=== PATIENT | male | born 1975 | race African-American/Black ===

== ENCOUNTER 2018-08-15 15:27 | Emergency (ER) | payer OTHER ==
[2018-08-15] MEDS ORDERED: KETOROLAC TROMETHAMINE 60 MG/2 ML SDV IM ONE (16:15)
--- NOTE | 2018-08-15 16:28 | RADIOLOGY REPORT (SQ) ---
EXAM DESCRIPTION: CHEST 2 VIEWS COMPLETED DATE/TIME: 08/15/2018 4:21 pm REASON FOR STUDY: Chest pain COMPARISON: None. EXAM PARAMETERS: NUMBER OF VIEWS: two views TECHNIQUE: Digital Frontal and Lateral radiographic views of the chest acquired. RADIATION DOSE: NA LIMITATIONS: none FINDINGS: LUNGS AND PLEURA: No opacities, masses or pneumothorax. No pleural effusion. MEDIASTINUM AND HILAR STRUCTURES: No masses or contour abnormalities. HEART AND VASCULAR STRUCTURES: Heart normal size. No evidence for failure. BONES: No acute findings. HARDWARE: None in the chest. OTHER: No other significant finding. IMPRESSION: NO ACUTE RADIOGRAPHIC FINDING IN THE CHEST. TECHNICAL DOCUMENTATION: JOB ID: [id number] [employer]- All Rights Reserved Reading location - IP/workstation name: [email or web address]
--- NOTE | 2018-08-15 16:32 | ER Document Report ---
ED General - General Chief Complaint: Chest Wall Pain Stated Complaint: LEFT SIDE PAIN Time Seen by Provider: 08/15/18 16:14 Mode of Arrival: Ambulatory Information source: Patient Notes: Chief complaint: Left lower chest pain History of complain:( obtained from----patient) 43 years old male lifted a heavy object yesterday suddenly felt a sharp pain on the left side of the chest wall, since then pain is persistent increased in intensity by change of position. He feels like some air in the chest. That is his description of pain. No difficulty in breathing no cough. No other constitutional symptoms Onset: As above Duration: As above Severity: Moderate Quality: Sharp Context: As described above Exacerbating factor and relieving factors: Change of position REVIEW OF SYSTEMS: CONSTITUTIONAL : Denies fever, chills, or sweats. Denies recent illness. EENT: Denies eye, ear, throat, or mouth pain or symptoms. Denies nasal or sinus congestion or discharge. Denies throat, tongue, or mouth swelling or difficulty swallowing. CARDIOVASCULAR: Denies chest pain. Denies palpitations or racing or irregular heart beat. Denies ankle edema. RESPIRATORY: Denies cough, cold, or chest congestion. Denies shortness of breath, difficulty breathing, or wheezing. GASTROINTESTINAL: Denies distention. Denies nausea, vomiting, or diarrhea. Denies blood in vomitus, stools, or per rectum. Denies black, tarry stools. Denies constipation. GENITOURINARY: Denies difficulty urinating, painful urination, burning, frequency, blood in urine, or discharge. FEMALE GENITOURINARY: Denies vaginal bleeding, heavy or abnormal periods, irregular periods. Denies vaginal discharge or odor. MUSCULOSKELETAL: Denies back or neck pain or stiffness. Denies joint pain or swelling. SKIN: Denies rash, lesions or sores. HEMATOLOGIC : Denies easy bruising or bleeding. LYMPHATIC: Denies swollen, enlarged glands. NEUROLOGICAL: Denies confusion or altered mental status. Denies passing out or loss of consciousness. Denies dizziness or lightheadedness. Denies headache. Denies weakness or paralysis or loss of use of either side. Denies problems with gait or speech. Denies sensory loss, numbness, or tingling. Denies seizures. PSYCHIATRIC: Denies anxiety or stress. Denies depression, suicidal ideation, or homicidal ideation. ALL OTHER SYSTEMS REVIEWED AND NEGATIVE. PHYSICAL EXAMINATION: GENERAL: Well-appearing, well-nourished and in no acute distress. HEAD: Atraumatic, normocephalic. EYES: Pupils equal round and reactive to light, extraocular movements intact, conjunctiva are normal. ENT: Nares patent, oropharynx clear without exudates. Moist mucous membranes. NECK: Normal range of motion, supple without lymphadenopathy LUNGS: Breath sounds clear to auscultation bilaterally and equal. No wheezes rales or rhonchi. HEART: Regular rate and rhythm without murmurs ABDOMEN: Soft, nontender, nondistended abdomen. No guarding, no rebound. No masses appreciated. Examination of genitals-deferred Musculoskeletal: Normal range of motion, no pitting or edema. No cyanosis. NEUROLOGICAL: Cranial nerves grossly intact. Normal speech, normal gait. Normal sensory, motor exams PSYCH: Normal mood, normal affect. SKIN: Warm, Dry, normal turgor, no rashes or lesions noted. Dictation was performed using [employer] voice recognition software TRAVEL OUTSIDE OF THE [place] IN LAST 30 DAYS: No - HPI Notes: Dictated - Related Data Allergies/Adverse Reactions: No Known Allergies Allergy (Unverified 08/15/18 16:12) Past Medical History - Social History Smoking Status: Never Smoker Frequency of alcohol use: Occasional Drug Abuse: None Family History: Reviewed & Not Pertinent Patient has suicidal ideation: No Patient has homicidal ideation: No Renal/ Medical History: Denies: Hx Peritoneal Dialysis Past Surgical History: Comment Only: Hx Testicular Surgery - varicocele repair - Immunizations Hx Diphtheria, Pertussis, Tetanus Vaccination: Yes Review of Systems - Review of Systems Notes: Dictated Physical Exam - Vital signs Vitals: Temp Pulse Resp BP Pulse Ox 98.2 F 72 16 117/78 100 08/15/18 15:38 08/15/18 15:38 08/15/18 15:38 08/15/18 15:38 08/15/18 15:38 - Notes Notes: Dictated Course - Vital Signs Vital signs: Temp Pulse Resp BP Pulse Ox 98.2 F 72 16 117/78 100 08/15/18 15:38 08/15/18 15:38 08/15/18 15:38 08/15/18 15:38 08/15/18 15:38 Discharge - Discharge Clinical Impression: Chest wall pain Condition: Fair Disposition: HOME, SELF-CARE Instructions: Chest Wall Pain ([facility]) Prescriptions: Baclofen [Baclofen 10 mg Tablet] 10 mg PO TID #60 tab Naproxen 500 mg PO BID #30 tablet
[2018-08-15 18:00] VITALS: BP 115/79
== END 2018-08-15 18:02 | disposition home or self-care (01) ==
LOC: ER 15:27
DX: R07.89 Other chest pain (principal); X50.0XXA Overexertion from strenuous movement or load, initial encounter
CPT/HCPCS: 99283; 96372; 71046; J1885

== ENCOUNTER → 2019-10-07 | Outpatient (CLI) | payer MEDICAID ==
--- NOTE | 2019-10-07 16:28 | RADIOLOGY REPORT (SQ) ---
EXAM DESCRIPTION: KNEE LEFT 3 VIEWS; KNEE RIGHT 3 VIEWS COMPLETED DATE/TIME: 10/07/2019 4:18 pm REASON FOR STUDY: CHRONIC PAIN OF RT/LEFT KNEE M25.561 PAIN IN RIGHT KNEE M25.562 PAIN IN LEFT KNE E COMPARISON: None. NUMBER OF VIEWS: Three views. TECHNIQUE: AP, lateral, and sunrise patella radiographic images acquired of the right and left knees . LIMITATIONS: None. FINDINGS: MINERALIZATION: Normal. BONES: No acute fracture or dislocation. No worrisome bone lesions. No significant osteophytes. JOINT: No effusion. No chondrocalcinosis. OTHER: No other significant finding. IMPRESSION: No evidence of acute bony abnormality of the right or left knees. No significant degenerative change. TECHNICAL DOCUMENTATION: JOB ID: [id number] [employer]- All Rights Reserved Reading location - IP/workstation name: [email or web address]
--- NOTE | 2019-10-07 16:28 | RADIOLOGY REPORT (SQ) ---
EXAM DESCRIPTION: KNEE LEFT 3 VIEWS; KNEE RIGHT 3 VIEWS COMPLETED DATE/TIME: 10/07/2019 4:18 pm REASON FOR STUDY: CHRONIC PAIN OF RT/LEFT KNEE M25.561 PAIN IN RIGHT KNEE M25.562 PAIN IN LEFT KNE E COMPARISON: None. NUMBER OF VIEWS: Three views. TECHNIQUE: AP, lateral, and sunrise patella radiographic images acquired of the right and left knees . LIMITATIONS: None. FINDINGS: MINERALIZATION: Normal. BONES: No acute fracture or dislocation. No worrisome bone lesions. No significant osteophytes. JOINT: No effusion. No chondrocalcinosis. OTHER: No other significant finding. IMPRESSION: No evidence of acute bony abnormality of the right or left knees. No significant degenerative change. TECHNICAL DOCUMENTATION: JOB ID: [id number] [employer]- All Rights Reserved Reading location - IP/workstation name: [email or web address]
== END ==
LOC: OD 15:56
PROVIDERS: ATTEND Nurse Practitioner Family
DX: M25.561 Pain in right knee (principal); M25.562 Pain in left knee

== ENCOUNTER 2020-06-07 08:34 | Emergency (ER) | payer OTHER, MEDICAID ==
--- NOTE | 2020-06-07 10:20 | ER Document Report ---
ED Medical Screen (RME) - General Chief Complaint: Chest Pain Stated Complaint: CHEST PAIN Time Seen by Provider: 06/07/20 10:18 Primary Care Provider: LATASHA FLORES NP [Primary Care Provider] - Follow up as needed Mode of Arrival: Ambulatory Information source: Patient Notes: HPI; 45-year-old male presents to the emergency room complaining of left-sided chest pain that radiates to the left side of his back. States he has had it since Sunday describes it as sharp and burning. Worse with inspiration. Has been taking 81 mg baby aspirin and Tums, Gas-X without relief. PE: Alert and oriented x3. Mild distress noted. Lungs: Clear to auscultation without rales, rhonchi, wheezes. Heart: Regular rate and rhythm without murmurs, rubs, gallops. I have greeted and performed a rapid initial assessment of this patient. A comprehensive ED assessment and evaluation of the patient, analysis of test results and completion of the medical decision making process will be conducted by additional ED providers. I have specifically instructed the patient or family members with the patient to immediately return to any nursing staff should anything change in the patient's condition or with their chief complaint. TRAVEL OUTSIDE OF THE [place] IN LAST 30 DAYS: No - Related Data Allergies/Adverse Reactions: No Known Allergies Allergy (Unverified 08/15/18 16:12) Past Medical History - Social History Frequency of alcohol use: Occasional Drug Abuse: None Renal/ Medical History: Denies: Hx Peritoneal Dialysis Past Surgical History: Comment Only: Hx Testicular Surgery - varicocele repair - Immunizations Hx Diphtheria, Pertussis, Tetanus Vaccination: Yes Physical Exam - Vital signs Vitals: Temp Pulse Resp BP Pulse Ox 97.9 F 56 L 16 125/79 100 06/07/20 08:46 06/07/20 08:46 06/07/20 08:46 06/07/20 08:46 06/07/20 08:46 Course - Vital Signs Vital signs: Temp Pulse Resp BP Pulse Ox 97.9 F 56 L 16 125/79 100 06/07/20 08:46 06/07/20 08:46 06/07/20 08:46 06/07/20 08:46 06/07/20 08:46 Doctor's Discharge - Discharge Referrals: LATASHA FLORES NP [Primary Care Provider] - Follow up as needed
--- NOTE | 2020-06-07 10:50 | RADIOLOGY REPORT (SQ) ---
EXAM DESCRIPTION: CHEST 2 VIEWS IMAGES COMPLETED DATE/TIME: 06/07/2020 10:40 am REASON FOR STUDY: chest pain COMPARISON: 2018 TECHNIQUE: Frontal and lateral radiographic views of the chest acquired. NUMBER OF VIEWS: Two view. LIMITATIONS: None. FINDINGS: LUNGS AND PLEURA: No opacities, masses or pneumothorax. No pleural effusion. MEDIASTINUM AND HILAR STRUCTURES: No masses or contour abnormalities. HEART AND VASCULAR STRUCTURES: Heart normal size. No evidence for failure. BONES: No acute findings. HARDWARE: None in the chest. OTHER: No other significant finding. IMPRESSION: NO SIGNIFICANT RADIOGRAPHIC FINDING IN THE CHEST. TECHNICAL DOCUMENTATION: JOB ID: [id number] 2010 [employer]- All Rights Reserved Reading location - IP/workstation name: [email or web address]
[2020-06-07 10:54] LABS: ABSOLUTE BASOPHILS # (AUTO) 0.1 10^3/uL (0.0-0.2); ABSOLUTE EOSINOPHILS # (AUTO) 0.1 10^3/uL (0.0-0.6); ABSOLUTE MONOCYTES (AUTO) 0.5 10^3/uL (0.1-1.4); ABSOLUTE NEUT (AUTO) 3.8 10^3/uL (1.7-8.2); BASOPHILS % (AUTO) 0.9 % (0-2); EOSINOPHILS % (AUTO) 1.6 % (0-6); HEMATOCRIT 43.1 % (37.9-51.0); HEMOGLOBIN 14.7 g/dL (13.5-17.0); LYMPHOCYTES % (AUTO) 31.5 % (13-45); MEAN CORPUSCULAR HEMOGLOBIN 31.7 pg (27.0-33.4); MEAN CORPUSCULAR HGB CONC 34.1 g/dL (32.0-36.0); MEAN CORPUSCULAR VOLUME 93 fl (80-97); MONOCYTES % (AUTO) 7.7 % (3-13); PLATELET COUNT 237 10^3/uL (150-450); RED BLOOD COUNT 4.64 10^6/uL (4.35-5.55); RED CELL DISTRIBUTION WIDTH 13.1 % (11.5-14.0); SEGMENTED NEUTROPHILS % (AUTO) 58.3 % (42-78); TOTAL CELLS COUNTED % (AUTO) 100 %; WHITE BLOOD COUNT 6.5 10^3/uL (4.0-10.5)
--- NOTE | 2020-06-07 11:14 | EKG REPORT ---
SEVERITY:- NORMAL ECG - SINUS BRADYCARDIA : Confirmed by: Trell Diaz MD 07-Jun-2020 11:14:02
[2020-06-07 11:21] LABS: ALBUMIN 4.5 g/dL (3.5-5.0); ALKALINE PHOSPHATASE 78 U/L (38-126); ANION GAP 7 (5-19); ASPARTATE AMINO TRANSFERASE 42 U/L (17-59); BILIRUBIN,TOTAL 0.7 mg/dL (0.2-1.3); BLOOD UREA NITROGEN 8 mg/dL (7-20); CALCIUM 9.7 mg/dL (8.4-10.2); CARBON DIOXIDE 29 mmol/L (22-30); CHLORIDE 102 mmol/L (98-107); CREATINE KINASE 66 U/L (55-170); GLUCOSE 99 mg/dL (75-110); POTASSIUM 4.4 mmol/L (3.6-5.0); TOTAL PROTEIN 7.9 g/dL (6.3-8.2)
[2020-06-07 11:33] LABS: CREATINE KINASE MB 0.24 ng/mL (<4.55)
[2020-06-07 11:34] LABS: TROPONIN I < 0.012 ng/mL
--- NOTE | 2020-06-07 13:01 | ER Document Report ---
ED General - General Chief Complaint: Chest Pain Stated Complaint: CHEST PAIN Time Seen by Provider: 06/07/20 10:18 Primary Care Provider: LATASHA FLORES NP [NURSE PRACTITIONER] - Follow up as needed Mode of Arrival: Ambulatory Notes: 45-year-old male presents to the emergency room complaining of left-sided chest pain that radiates to the left side of his back. States he has had it since S atday describes it as sharp and burning. Worse with inspiration. Has been taking 81 mg baby aspirin and Tums, Gas-X without relief. The patient denies shortness of breath. Denies diaphoresis. Denies nausea vomiting. Denies calf pain or leg swelling. States he was out fishing in the heat on Sunday is when it started. He thought he was drinking enough water but was not sure he thought it felt like a charley horse in his chest. It is come and gone since. Right now it is very mild at worst it was severe. TRAVEL OUTSIDE OF THE [place] IN LAST 30 DAYS: No - Related Data Allergies/Adverse Reactions: No Known Allergies Allergy (Unverified 08/15/18 16:12) Past Medical History - General Information source: Patient - Social History Smoking Status: Never Smoker Frequency of alcohol use: Occasional Drug Abuse: None Family History: Reviewed & Not Pertinent Renal/ Medical History: Denies: Hx Peritoneal Dialysis Past Surgical History: Comment Only: Hx Testicular Surgery - varicocele repair - Immunizations Hx Diphtheria, Pertussis, Tetanus Vaccination: Yes Review of Systems - Review of Systems Constitutional: denies: Chills, Fever Cardiovascular: Chest pain. denies: Dyspnea Gastrointestinal: denies: Diarrhea, Nausea, Vomiting Genitourinary: denies: Dysuria Musculoskeletal: denies: Back pain Skin: denies: Rash Neurological/Psychological: denies: Headaches, Tingling -: Yes All other systems reviewed and negative Physical Exam - Vital signs Vitals: Temp Pulse Resp BP Pulse Ox 97.9 F 56 L 16 125/79 100 06/07/20 08:46 06/07/20 08:46 06/07/20 08:46 06/07/20 08:46 06/07/20 08:46 - Notes Notes: GENERAL_APPEARANCE: well_nourished, alert, cooperative VITALS: reviewed, see vital signs table. HEAD: no_swelling\tenderness on the head. EYES: PERRL, EOMI, conjunctiva_clear. NOSE: no_nasal_discharge. MOUTH: (-)decreased moisture. THROAT: no_tonsilar_inflammation, no_airway_obstruction. no_lymphadenopathy NECK: supple, no_neck_tenderness, (-)thyromegaly. BACK: no_back_tenderness. CHEST_WALL: Left pectoralis_chest_tenderness. No crepitus or subcutaneous emphysema LUNGS: no_wheezing, no_rales, no_rhonchi, (-)accessory muscle use, good air exchange bilateral. HEART: normal_rate, normal_rhythm, normal_S1, normal_S2, (-)S3, (-)S4, no_murmur, no_rub. ABDOMEN: soft, no_abd_tenderness, (-)guarding, (-)rebound, no_organomegaly, no_abd_masses. EXTREMITIES: good pulses in all_extremities, no_swelling\tenderness in the extremities, no_edema. SKIN: warm, dry, good_color, no_rash. MENTAL_STATUS: speech_clear, oriented_X_3, normal_affect, responds_appropri ately to questions. Course - Re-evaluation Re-evalutation: 06/07/20 12:59 Sexual male presents to the emergency department complaining of - Vital Signs Vital signs: Temp Pulse Resp BP Pulse Ox 97.9 F 56 L 16 125/79 98 06/07/20 08:46 06/07/20 08:46 06/07/20 08:46 06/07/20 08:46 06/07/20 12:05 - Laboratory Result Diagrams: 06/07/20 10:30 06/07/20 10:30 - Diagnostic Test Radiology reviewed: Reports reviewed Radiology results interpreted by me: 06/07/20 14:16 Chest X-Ray 06/07/20 10:18 IMPRESSION: NO SIGNIFICANT RADIOGRAPHIC FINDING IN THE CHEST. - EKG Interpretation by [facility] EKG shows normal: Sinus rhythm Rate: Bradycardia Rhythm: NSR Voltage: No: Consistant with [facility] Discharge - Discharge Clinical Impression: Chest wall pain Condition: Good Disposition: HOME, SELF-CARE Instructions: Chest Wall Pain ([facility]), Chest Pain of Unclear Cause ([facility]) Additional Instructions: We spoke about the limitations of our testing and the possibility of a major adverse cardiac event. If you do not get better in the next 24 to 48 hours or worse return to the ER. Referrals: LATASHA FLORES, CLINICAL DATA PROGRAMMER [NURSE PRACTITIONER] - Follow up as needed
[2020-06-07 15:13] VITALS: BP 114/88
== END 2020-06-07 15:13 | disposition home or self-care (01) ==
LOC: ER 08:34
DX: R07.89 Other chest pain (principal); R00.1 Bradycardia, unspecified
CPT/HCPCS: 36415; 71046; 80053; 82550; 82553; 84484; 85025; 93005; 93010; 99284

== ENCOUNTER 2020-06-09 14:57 | Emergency (ER) | payer OTHER, MEDICAID ==
--- NOTE | 2020-06-09 15:26 | ER Document Report ---
ED Medical Screen (RME) - General Stated Complaint: CHEST DISCOMFORT Time Seen by Provider: 06/09/20 15:06 TRAVEL OUTSIDE OF THE [place] IN LAST 30 DAYS: No - HPI Notes: 06/09/20 15:24 45 yr old male presents to the emergency room for left-sided chest pain and chest pressure that started 5 days ago. Patient states he feels like he has a "full pulsating against his chest and heart". Patient states worse with certain positions, but shifting his weight makes it feel better. He does take a baby aspirin. Reports that pain radiates through his back. non-smoker. Denies any cardiac issues or history with his parents. Reports that episodes last all day. Patient was seen in the emergency room on Sunday, June 07, for similar issues. He was discharged home. Patient did follow-up with Dr. Michaels, head of partner development, who he spoke to today and Dr. Michaels advised him go back to the emergency room for further evaluation and possibly may need a stress test. Denies any nausea vomiting diarrhea, denies any fevers or chills. I have greeted and performed a rapid initial assessment of this patient. A comprehensive ED assessment and evaluation of the patient, analysis of test results and completion of the medical decision making process will be conducted by additional ED providers. PHYSICAL EXAMINATION: GENERAL: Well-appearing, well-nourished and in no acute distress. NECK: Normal range of motion CV: s1, s2 regular LUNGS: No respiratory distress Musculoskeletal: Normal range of motion NEUROLOGICAL: Normal speech, normal gait. SKIN: Warm, Dry, normal turgor, no rashes or lesions noted. 06/09/20 15:26 - Related Data Allergies/Adverse Reactions: No Known Allergies Allergy (Unverified 08/15/18 16:12) Past Medical History Renal/ Medical History: Denies: Hx Peritoneal Dialysis Past Surgical History: Comment Only: Hx Testicular Surgery - varicocele repair - Immunizations Hx Diphtheria, Pertussis, Tetanus Vaccination: Yes Physical Exam - Vital signs Vitals: Temp Pulse Resp BP Pulse Ox 98.7 F 77 20 110/74 98 06/09/20 15:11 06/09/20 15:11 06/09/20 15:11 06/09/20 15:11 06/09/20 15:11 Course - Vital Signs Vital signs: Temp Pulse Resp BP Pulse Ox 98.7 F 77 20 110/74 98 06/09/20 15:11 06/09/20 15:11 06/09/20 15:11 06/09/20 15:11 06/09/20 15:11
[2020-06-09 16:01] LABS: ABSOLUTE EOSINOPHILS # (AUTO) 0.1 10^3/uL (0.0-0.6); ABSOLUTE LYMPHOCYTES (AUTO) 2.1 10^3/uL (0.5-4.7); ABSOLUTE MONOCYTES (AUTO) 0.6 10^3/uL (0.1-1.4); ABSOLUTE NEUT (AUTO) 4.6 10^3/uL (1.7-8.2); BASOPHILS % (AUTO) 0.6 % (0-2); EOSINOPHILS % (AUTO) 1.1 % (0-6); HEMATOCRIT 41.8 % (37.9-51.0); HEMOGLOBIN 14.5 g/dL (13.5-17.0); LYMPHOCYTES % (AUTO) 28.6 % (13-45); MEAN CORPUSCULAR HGB CONC 34.6 g/dL (32.0-36.0); MEAN CORPUSCULAR VOLUME 92 fl (80-97); PLATELET COUNT 222 10^3/uL (150-450); RED BLOOD COUNT 4.52 10^6/uL (4.35-5.55); RED CELL DISTRIBUTION WIDTH 12.7 % (11.5-14.0); SEGMENTED NEUTROPHILS % (AUTO) 61.7 % (42-78); TOTAL CELLS COUNTED % (AUTO) 100 %; WHITE BLOOD COUNT 7.5 10^3/uL (4.0-10.5)
--- NOTE | 2020-06-09 16:06 | RADIOLOGY REPORT (SQ) ---
EXAM DESCRIPTION: CHEST 2 VIEWS IMAGES COMPLETED DATE/TIME: 06/09/2020 2:42 pm REASON FOR STUDY: chest pain COMPARISON: 06/07/2020. EXAM PARAMETERS: NUMBER OF VIEWS: two views TECHNIQUE: Digital Frontal and Lateral radiographic views of the chest acquired. RADIATION DOSE: NA LIMITATIONS: none FINDINGS: LUNGS AND PLEURA: No opacities, masses or pneumothorax. No pleural effusion. MEDIASTINUM AND HILAR STRUCTURES: No masses or contour abnormalities. HEART AND VASCULAR STRUCTURES: Heart normal size. No evidence for failure. BONES: No acute findings. HARDWARE: None in the chest. OTHER: No other significant finding. IMPRESSION: NO ACUTE RADIOGRAPHIC FINDING IN THE CHEST. TECHNICAL DOCUMENTATION: JOB ID: [id number] 2010 [employer]- All Rights Reserved Reading location - IP/workstation name: [email or web address]
[2020-06-09 16:15] LABS: ALBUMIN 4.6 g/dL (3.5-5.0); ALKALINE PHOSPHATASE 82 U/L (38-126); ANION GAP 6 (5-19); ASPARTATE AMINO TRANSFERASE 46 U/L (17-59); BILIRUBIN,TOTAL 0.6 mg/dL (0.2-1.3); BLOOD UREA NITROGEN 13 mg/dL (7-20); CALCIUM 9.8 mg/dL (8.4-10.2); CARBON DIOXIDE 29 mmol/L (22-30); CHLORIDE 101 mmol/L (98-107); CREATINE KINASE 63 U/L (55-170); GLUCOSE 89 mg/dL (75-110); POTASSIUM 4.3 mmol/L (3.6-5.0); TOTAL PROTEIN 7.9 g/dL (6.3-8.2)
[2020-06-09 16:27] LABS: CREATINE KINASE MB 0.32 ng/mL (<4.55)
[2020-06-09 16:35] LABS: TROPONIN I < 0.012 ng/mL
--- NOTE | 2020-06-09 22:26 | RADIOLOGY REPORT (SQ) ---
CT angiogram chest with contrast on 06/09/2020 at 9:37 PM CLINICAL INDICATION: Chest pain radiating to back TECHNIQUE: Multiple axial images are obtained throughout the chest following the administration of IV contrast. 71 mL of Omnipaque 350 contrast was a school bus mechanic intravenously. Computer generated 3D reconstructions/MIPS were performed. This exam was performed according to our departmental dose-optimization program, which includes automated exposure control, adjustment of the mA and/or kV according to patient size and/or use of iterative reconstruction technique. Total DLP is 728.37 mGy*cm. COMPARISON: None FINDINGS: There is no thoracic aortic aneurysm or dissection. A couple of small hepatic cysts are noted. Visualized abdomen is otherwise unremarkable. There is no pleural or pericardial effusion. There is no thoracic adenopathy. There are no filling defects within the pulmonary arteries to suggest pulmonary embolus. The lungs are clear. No bony abnormality is noted. IMPRESSION: 1. No evidence of pulmonary embolus. 2. No acute abnormality.
[2020-06-09] MEDS ORDERED: FAMOTIDINE 20 MG TABLET PO ONE (22:34)
--- NOTE | 2020-06-09 22:40 | ER Document Report ---
ED General - General Chief Complaint: L sided chest didcomfort Stated Complaint: CHEST DISCOMFORT Time Seen by Provider: 06/09/20 15:06 TRAVEL OUTSIDE OF THE [place] IN LAST 30 DAYS: No - HPI Notes: 45-year-old male history of hyperlipidemia, low testosterone not currently on replacement secondary to orchiectomy for rule out testicular cancer which was negative presents with constant waxing waning lower left-sided chest pain and retrosternal chest pain that is burning in quality and he feels rising in his esophagus. Feels like pain is worse with changes in position, palpation of the chest, deep breath, and when he exerts himself and moves around a lot. Patient denies pain being worse with exertion if exertion does not involve increased movement of the chest. Patient previously seen in ED for this pain and had negative EKG troponin and was discharged. Patient made appointment to follow-up with salt maker but when he spoke to salt maker on phone recommended that he be reevaluated in the ED to make sure that he was okay to follow-up with him next week. Patient says pain feels like GERD he has had in the past but more severe, not relieved by Tums or Gas-X but has not tried any H2 blockers or PPI. Patient says mother and father both had problem with blood clots in the past, unknown if genetic. Patient denies any history of CAD, cardiac history, hypertension, diabetes, lower extremity edema, calf pain, recent travel/surgery/immobilization, cough/hemoptysis, cancer history, exogenous estrogen therapy, personal hypercoag history - Related Data Allergies/Adverse Reactions: No Known Allergies Allergy (Unverified 08/15/18 16:12) Home Medications: Flomax Past Medical History - Social History Smoking Status: Never Smoker Chew tobacco use (# tins/day): No Frequency of alcohol use: Rare Drug Abuse: None Family History: Other - hypercoag Patient has homicidal ideation: No Renal/ Medical History: Denies: Hx Peritoneal Dialysis Past Surgical History: Comment Only: Hx Testicular Surgery - varicocele repair - Immunizations Hx Diphtheria, Pertussis, Tetanus Vaccination: Yes Review of Systems - Review of Systems Notes: REVIEW OF SYSTEMS: CONSTITUTIONAL : Denies fever, chills, or sweats. EENT: Denies recent cold/sinus symptoms, denies throat pain CARDIOVASCULAR: + chest pain, -GILLIAN RESPIRATORY: Denies cough, denies shortness of breath. GASTROINTESTINAL: Denies abdominal pain, nausea/vomiting. GENITOURINARY: Denies difficulty urinating, painful urination. MUSCULOSKELETAL: Denies neck pain, back pain. SKIN: Denies rash or skin lesions. HEMATOLOGIC : Denies easy bruising or bleeding. LYMPHATIC: Denies swollen, enlarged glands. NEUROLOGICAL: Denies headache, denies change in gait. PSYCHIATRIC: Denies anxiety or stress or depression. Physical Exam - Vital signs Vitals: Temp Pulse Resp BP Pulse Ox 98.7 F 77 20 110/74 98 06/09/20 15:11 06/09/20 15:11 06/09/20 15:11 06/09/20 15:11 06/09/20 15:11 - Notes Notes: PHYSICAL EXAMINATION: GENERAL: Well-appearing, well-nourished and in no acute distress. HEAD: Atraumatic, normocephalic. EYES: Pupils equal round and appropriate constriction, sclera anicteric, conjunctiva are normal. ENT: nares patent, moist mucous membranes. NECK: Normal range of motion, supple without lymphadenopathy LUNGS: Breath sounds clear to auscultation bilaterally and equal. No wheezes rales or rhonchi. Normal respiratory rate and effort HEART: Regular rate and rhythm without murmurs CHEST: Normal inspection, no masses, mild tenderness to palpation of inferior pectoralis on left side without any deformity, normal excursion ABDOMEN: Soft, nontender, no guarding, no masses, no CVAT EXTREMITIES: Normal range of motion, no pitting or edema, no calf tenderness. no cyanosis. NEUROLOGICAL: Awake, alert, conversing appropriately, moves all extremities spon taneously. PSYCH: Normal mood, normal affect. SKIN: Warm, Dry, normal turgor, no rashes or lesions noted. Course - Re-evaluation Re-evalutation: 06/09/20 22:42 Supervisor Stone referred patient to ED but had not actually evaluated patient. No worsening symptoms since prior evaluation. Needed to have PE ruled out, CTA ordered in triage which shows no PE. EKG remains without any signs of ischemia, Trop remains negative, and patient's heart score is 1. Patient instructed to keep appointment with salt maker next week and given extensive return to ED precautions for any worsening or alarming symptoms which he and partner de monstrated understanding of. We will give patient copy of all results for outpatient follow-up. Pain most likely secondary to chest wall muscle strain versus GERD, will put patient on trial of Pepcid to evaluate for improvement in symptoms when he has follow-up outpatient next week. Ready for discharge. - Vital Signs Vital signs: Temp Pulse Resp BP Pulse Ox 98.6 F 78 18 107/74 99 06/09/20 22:07 06/09/20 22:07 06/09/20 22:07 06/09/20 22:07 06/09/20 22:07 - Laboratory Result Diagrams: 06/09/20 15:35 06/09/20 15:35 Laboratory results interpreted by me: 06/09/20 15:35 Sodium 136.2 L Discharge - Discharge Clinical Impression: Chest pain Condition: Stable Additional Instructions: Chest Pain of Unclear Cause The exact cause of your chest pain isn't clear. Fortunately, there is no evidence of a dangerous medical condition. Further testing may be required to find the source of the pain. Most often, we find that this pain is coming from the chest wall -- the muscles or rib joints in the chest. But chest pain can come from the lung and lung lining, the esophagus, the heart valves or heart lining, and even the st omach or gallbladder. Rest. Eat lightly until the pain is gone. We may prescribe medicine for maegan n and inflammation. You should call the physician immediately if the pain radiates to the shoulder, jaw or arms; if you start to run a fever or develop a cough; or if you develop shortness of breath, or other new or alarming symptoms. Follow-up with your salt maker and primary doctor within 1 week. Return to ED immediately for any worsening symptoms such as worsening pain, changing pain, shortness of breath, fainting, or any other worsening or alarming symptoms. Prescriptions: Famotidine [Pepcid 20 mg Tablet] 20 mg PO BID #12 tablet
[2020-06-09 23:20] VITALS: BP 108/76
--- NOTE | 2020-06-10 09:23 | EKG REPORT ---
SEVERITY:- NORMAL ECG - SINUS RHYTHM : Confirmed by: Brady Ricks 10-Jun-2020 09:23:34
== END 2020-06-09 23:19 | disposition home or self-care (01) ==
LOC: ER 14:57
DX: R07.9 Chest pain, unspecified (principal); E78.5 Hyperlipidemia, unspecified; Z79.899 Other long term (current) drug therapy
CPT/HCPCS: 36415; 71046; 71275; 80053; 82550; 82553; 84484; 85025; 93005; 93010; 99285